=== PATIENT | male | born 1990 | race Asian ===

== ENCOUNTER 2019-08-05 16:16 | Emergency (ER) | payer OTHER ==
[~2019-08-05] VITALS: Ht 177.8 cm; Wt 89.1 kg
[2019-08-05 17:45] VITALS: BP 138/85
--- NOTE | 2019-08-06 09:16 | REP ---
RIGHT ANKLE, FOUR VIEWS: Four views of the right ankle performed. There appears to be an old avulsion fracture of the lateral malleolus. No acute fracture or dislocation is seen. The ankle mortise is anatomic. Electronically Signed by Isra Tovar MD 08/06/2019 10:00 A
== END 2019-08-05 18:09 | disposition home or self-care (01) ==
LOC: M ED 16:16
DX: M25.571 Pain in right ankle and joints of right foot (principal); X50.1XXA Overexertion from prolonged static or awkward postures, initial encounter; Y92.89 Other specified places as the place of occurrence of the external cause; Y93.89 Activity, other specified; Y99.1 Military activity; Z87.81 Personal history of (healed) traumatic fracture

== ENCOUNTER → 2019-09-22 | Outpatient (REF) | payer OTHER ==
[2019-09-22 11:29] LABS: HEMATOCRIT 43.4 % (42.0-52.0); HEMOGLOBIN 14.5 g/dl (13.5-17.5); MEAN CORPUSCULAR HEMOGLOBIN 28.8 pg (27.0-33.0); MEAN CORPUSCULAR HGB CONC 33.4 g/dl (32.0-36.5); MEAN CORPUSCULAR VOLUME 86.1 fl (80.0-96.0); PLATELET COUNT, AUTOMATED 220 10^3/uL (150-450); RED BLOOD COUNT 5.04 10^6/uL (4.30-6.10); WHITE BLOOD COUNT 4.7 10^3/uL (4.0-10.0)
[2019-09-22 11:38] LABS: INR 0.98; PROTHROMBIN TIME 12.7 SECONDS (11.8-14.0)
[2019-09-22 11:39] LABS: PARTIAL THROMBOPLASTIN TIME 33.3 SECONDS (25.0-38.4)
[2019-09-22 12:37] LABS: BLOOD UREA NITROGEN 12 MG/DL (7-18); CALCIUM LEVEL 8.7 MG/DL (8.5-10.1); CARBON DIOXIDE LEVEL 29 MEQ/L (21-32); CHLORIDE LEVEL 105 MEQ/L (98-107); CREATININE FOR GFR 1.05 MG/DL (0.70-1.30); GLOMERULAR FILTRATION RATE > 60.0 (>60); GLUCOSE, FASTING 103 MG/DL (70-100); POTASSIUM SERUM 4.1 MEQ/L (3.5-5.1); SODIUM LEVEL 140 MEQ/L (136-145)
== END ==
LOC: M LABSMT 09:51
PROVIDERS: ATTEND Nurse Practitioner Women's Health
DX: Q55.22 Retractile testis (principal); N50.819 Testicular pain, unspecified; Z01.812 Encounter for preprocedural laboratory examination

== ENCOUNTER 2019-09-23 06:07 | Day surgery (SDC) | payer OTHER ==
[~2019-09-23] VITALS: Ht 177.8 cm; Wt 95.2 kg
[~2019-09-23 06:07] MED LIST: LR 1,000 ML IV ONE; ceFAZolin SOD 2 GM in IV 1 EA IV ONE
[2019-09-23] MEDS ORDERED: BACITRACIN OINTMENT 30GM TUBE As Ordered ONE (07:07)
[2019-09-23] MEDS ORDERED: BUPIVACAINE HCL 0.25% 30ML VIAL As Ordered ONE (07:07)
[2019-09-23] MEDS ORDERED: fentaNYL 100 MCG/2 ML INJECTION (J3010) As Ordered ONE (07:08)
[2019-09-23] MEDS ORDERED: METOCLOPRAMIDE INJ 10MG/2ML VIAL (J2765 PER 1) As Ordered ONE (07:08)
[2019-09-23] MEDS ORDERED: KETOROLAC 60MG 2ML VIAL As Ordered ONE (07:08)
[2019-09-23] MEDS ORDERED: propofoL 200 MG/20 ML VIAL As Ordered ONE (07:08)
[2019-09-23] MEDS ORDERED: ONDANSETRON 4MG/2ML VIAL As Ordered ONE (07:08)
[2019-09-23] MEDS ORDERED: LIDOCAINE 2% 100MG/5ML SDV (FOR ANES.) As Ordered ONE (07:08)
[2019-09-23] MEDS ORDERED: MIDAZOLAM INJ 2MG/2ML VIAL (J2250 PER 1MG) As Ordered ONE (07:09)
[2019-09-23] MEDS ORDERED: PERCOCET 5MG/325MG TAB PO PRN (09:00)
[2019-09-23] MEDS ORDERED: ONDANSETRON 4MG/2ML VIAL IV PRN (09:15)
[2019-09-23] MEDS ORDERED: oxyCODONE 5MG TAB PO PRN (09:15)
[2019-09-23] MEDS ORDERED: fentaNYL 100 MCG/2 ML INJECTION (J3010) IV PRN (09:15)
[2019-09-23] MEDS ORDERED: LR 1,000 ML IV SCH (09:15)
[2019-09-23 10:15] VITALS: BP 127/81
--- NOTE | 2019-09-27 14:53 | RO ---
DATE OF PROCEDURE: 09/23/2019 PREPROCEDURE DIAGNOSIS: Retractile left testicle. POSTPROCEDURE DIAGNOSIS: Retractile left testicle. PROCEDURE: Left orchiopexy. SURGEON: Elie Byrnes MD REFUND CLERK: None. ANESTHESIA: General. OPERATIVE INDICATIONS: This is a 29-year-old male who has been having severe pain for retractile left testicle. Brought today for treatment. DESCRIPTION OF PROCEDURE: The patient was brought to the operating room and general anesthesia was induced. Prophylactic antibiotics were infused. He was then placed in supine position and prepped and draped in the usual sterile fashion. At this point, an approximately 3-4 cm transverse incision was made over the left hemiscrotum. We then dissected down to scrotal wall layers and then opened the tunica vaginalis. The testicles were delivered outside of the left hemiscrotum. Next, on both lateral aspect of the testicle, a #2-0 Vicryl suture was placed through the tunica albuginea and then through the dartos muscle on the corresponding side inside the scrotum. We then checked for hemostasis. Any areas of bleeding were controlled with electrocautery. The testicle was then delivered back inside the left hemiscrotum in its normal anatomic position. Once that was done, the #2-0 Vicryl sutures were tied down securing the testicle inside the scrotum. The dartos was then closed with a running #3-0 Vicryl suture. The skin was closed with interrupted #2-0 chromic sutures, and this marked conclusion of procedure. Dressings were applied. The patient was then awakened from anesthesia and transported to recovery room in stable condition. ESTIMATED BLOOD LOSS: 10 mL. COMPLICATIONS: None. SPECIMENS: None. PLAN: The patient will followup in the clinic in a few weeks for postoperative visit.
== END 2019-09-23 10:41 | disposition home or self-care (01) ==
LOC: M SDC 06:07
PROVIDERS: ATTEND Urology
DX: Q55.22 Retractile testis (principal)
CPT/HCPCS: 54640; J0690; J1885; J2250; J2405; J2765; J3010